=== PATIENT | male | born 1945 | race Caucasian/White ===

== ENCOUNTER 2016-12-18 08:55 | Day surgery (SDC) | payer OTHER ==
[~2016-12-18] VITALS: Ht 175.3 cm; Wt 78.6 kg
[2016-12-18] VITALS (9 sets, daily range): BP systolic 104–139; BP diastolic 53–85; PULSE 57–66; RESP 18–20; TEMP 97.6–97.7; O2SAT 93–98
[~2016-12-18 08:55] MED LIST: ACET325 PO; ASPI1TAB69 PO; LORA-373 PO; MULT-106; PANT40TA3 PO; RANI150T PO; TAMS.4 PO
[2016-12-18] MEDS ORDERED: TAMS0.4C4 PO (09:22)
[2016-12-18] MEDS ORDERED: PANT40TA3 PO (09:22)
[2016-12-18] MEDS ORDERED: SODIUM CHLOR 0.9% 1000 ML IV SCH (09:30)
[2016-12-18] MEDS ORDERED: LIDOCAINE 1%/EPINEPHrine 1:100,000 SOLN 20 ML VIAL ONE (12:23)
[2016-12-18] MEDS ORDERED: MIDAZOLAM HCL 5 MG/5 ML VIAL ONE (12:52)
[2016-12-18] MEDS ORDERED: fentaNYL CITRATE 250 MCG/5 ML AMP ONE (12:52)
[2016-12-18] MEDS ORDERED: HYDROmorphone HCL 2 MG TAB PO PRN (14:00)
[2016-12-18] MEDS ORDERED: ACETAMINOPHEN 325 MG TAB PO ONE (14:30)
--- NOTE | 2016-12-18 15:06 | RADRPT ---
EXAM DATE/TIME: 12/18/2016 13:02 [place] COMPARISON: CT NEEDLE BIOPSY LIVER, February 27, 2016, 12:29. INDICATIONS : Liver mass. SEDATION TIME: 30 minutes BIOPSY SITE: Liver MEDICATION(S): 1.) 2 mg midazolam (Versed) IV 2.) 100 mcg fentanyl (Sublimaze) IV DEVICE(S): 1.) 18 gauge Temno core biopsy needle 2.) 17 gauge Temno coaxial MEDICAL HISTORY : Carcinoma, prostate. Lymphoma. Renal failure. SURGICAL HISTORY : None. ENCOUNTER: Initial ACUITY: 1 day PAIN SCORE: 0/10 LOCATION: Liver A total of eight core specimen(s) were obtained and sent to the laboratory for pathologic evaluation. PROCEDURE: 1. CT guided liver biopsy. 2. Conscious sedation with continuous EKG and oximetry monitoring. 3. EKG and oximetry remained stable throughout the procedure. Prior to the procedure informed consent was obtained. The patient's prior PET/CT examination was revi ewed. The site was prepped in a sterile fashion. Full sterile technique was used, including cap, mask, don rile gloves and gown and a large sterile sheet. Hand hygiene and 2% chlorhexidine and/or betadine/al cohol prep was utilized per protocol for cutaneous antisepsis. The skin and subcutaneous tissues wer e infiltrated with local anesthetic solution. With CT guidance the area of abnormal hypermetabolic activity along the posterior aspect of the right lobe liver lesion was localized. Biopsy was performed using the prescribed needle as above. Adequat e hemostasis was obtained with compression at the puncture site. Follow-up CT scan reveals no hemorrhage or acute abnormality. The patient tolerated the procedure well and there were no complications. The patient was returned to the Radiology Outpatient Unit in stable condition. CONCLUSION: Uncomplicated liver biopsy of a right posterior liver mass. I targeted the area that was hypermetabol ic on recent PET/CT examination. Although I feel confident that I targeted the appropriate area, ther e is a risk for sampling error given the small focal abnormal area identified on PET CT. Therefore, I would suggest followup imaging to confirm stability if biopsy results are negative. Zack Magaña MD on December 18, 2016 at 14:39 Board Certified Radiologist. This report was verified electronically.
[2016-12-18] MEDS ORDERED: IMPLANTED VASCULAR ACCESS DEVICE/PORT - SODIUM CHLORIDE FLUSH PRN IVF (16:45)
[2016-12-18] MEDS ORDERED: IMPLANTED VASCULAR ACCESS DEVICE/PORT - SODIUM CHLORIDE FLUSH IVF SCH (16:45)
== END 2016-12-18 17:27 | disposition home or self-care (01) ==
LOC: HRAD 08:55 → HRIP 08:56 → EDSTATUS 09:00 → HRAD 17:27
PROVIDERS: ATTEND Internal Medicine Hematology & Oncology
DX: R16.0 Hepatomegaly, not elsewhere classified (principal); D69.6 Thrombocytopenia, unspecified; D64.9 Anemia, unspecified; C61 Malignant neoplasm of prostate; C85.10 Unspecified B-cell lymphoma, unspecified site
CPT/HCPCS: 47000; 77012; 88184; 88185; 88307; 88312; 88341; 88342; J2250; J3010; J7030